=== PATIENT | male | born 1995 | race Caucasian/White ===

== ENCOUNTER 2024-09-14 02:18 | Observation (INO) | payer BC, SELFPAY ==
[2024-09-13 21:54] VITALS: BP 133/83
[2024-09-13 22:09] LABS: Hematocrit 43.3 % (39.0-52.0); Hemoglobin 15.1 g/dL (13.0-18.0); Mean Corp Hgb Conc. 34.9 g/dL (33.0-37.0); Mean Corpuscular Volume 88.7 fL (80.0-94.0); Nucleated Red Blood Cells % 0 % (-); Platelet Count 218 10^3/uL (130-400); Red Cell Dist. Width 12.1 % (11.5-14.5)
[2024-09-13 22:26] LABS: ALT (SGPT) 125 U/L (0-50); AST (SGOT) 58 U/L (17-59); Albumin 4.7 g/dl (3.5-5.0); Alkaline Phosphatase 60 U/L (38-126); Blood Urea Nitrogen 12 mg/dl (9-20); Calcium 9.8 mg/dl (8.4-10.2); Carbon Dioxide 24 mmol/L (22-30); Chloride 104 mmol/L (98-107); Glucose 112 mg/dl (70-99); Potassium 4.5 mmol/L (3.5-5.1); Sodium 135 mmol/L (135-145); Total Protein 7.7 g/dl (6.3-8.2); eGFR > 60.00
[2024-09-13] MEDS: TORADOL 15 MG IV (23:09)
[2024-09-13] MEDS: ZOFRAN 4 MG IV (23:23)
[2024-09-14] VITALS (10 sets, daily range): BP systolic 111–137; BP diastolic 65–77; BMI 25.7
--- NOTE | 2024-09-14 00:38 | ED.GENMED ---
History of Present Illness
General
Chief Complaint: Abdominal Pain
Source: patient
Exam Limitations: none
Time Seen by Provider: 09/13/24 22:20
Nursing documentation reviewed up to this point in time: agreed with
History of Present Illness
History of Present Illness:
Otherwise healthy 29-year-old male presenting to the emergency department today with concerns of right lower quadrant abdominal pain worsening over the past 16 hours or so. Has had associated nausea vomiting no changes in bowel movements. No
history of surgeries. No daily medications.
Review of Systems
Review of Systems
Allergies reviewed?: Yes
All Other Systems: ROS reviewed and negative except as documented in HPI and ROS
Phy Exam
Physical Exam
Physical Exam:
GENERAL: Alert , in no apparent distress
EYE: pupils equal and reactive
NECK: Supple, no significant adenopathy.
ENT: o/p clr, mmm.
CARDIAC: Regular rate and rhythm .
LUNGS: Clear breath sounds bilaterally, no acute respiratory distress, no wheezes/rales/rhonchi
ABDOMEN: Right lower quadrant pain to palpation otherwise soft abdomen
NEUROLOGICAL: Alert and oriented, no focal neuro deficits
SKIN: Warm and dry, skin intact.
MUSCULOSKELETAL: No edema, well perfused.
PSYCH: Normal and appropriate interaction.
Course
Orders/Labs/Results
Orders:
Orders
09/13/24 22:03
CBC/With Diff [Complete Blood Count/With Diff] Urgent
CMP [Comprehensive Metabolic Panel] Urgent
09/13/24 22:53
CT Abd/Pel (IV only)-DH only Urgent
Comment:
Reason For Exam: RLQ pain
Urinalysis Reflex To Culture Urgent
Ketorolac [Toradol] 15 mg IV NOW STA
09/13/24 23:22
Ondansetron Injectable [Zofran] 4 mg IV NOW STA
Abnormal Lab Results
09/13/24
22:03
WBC 14.7 H 10^3/uL
(4.8-10.8)
MPV 11.2 H fL
(7.4-10.4)
Abs Immat Gran (auto) 0.1 H 10^3/uL
(0-0.05)
Absolute Neuts (auto) 12.6 H 10^3/uL
(1.4-6.5)
Absolute Lymphs (auto) 0.9 L 10^3/uL
(1.2-3.4)
Absolute Monos (auto) 0.9 H 10^3/uL
(0.1-0.6)
Neutrophils % 86.2 H %
(42.2-75.2)
Lymphocytes % 6.1 L %
(20.5-51.1)
Glucose 112 H mg/dl
(70-99)
ALT 125 H U/L
(0-50)
09/13/24 22:03
09/13/24 22:03
Vital Signs
Initial and Last Documented VS:
Initial Vital Signs
Temp Pulse Resp BP Pulse Ox
98.2 F 83 15 133/83 96
09/13/24 21:54 09/13/24 21:54 09/13/24 21:54 09/13/24 21:54 09/13/24 21:54
Last Documented Vital Signs
Temp Pulse Resp BP Pulse Ox
98.2 F 83 15 133/83 96
09/13/24 21:54 09/13/24 21:54 09/13/24 21:54 09/13/24 21:54 09/13/24 21:54
MDM/Problems Addressed
MDM/Problems Addressed:
29-year-old male presenting to the emergency department today with concerns of right lower quadrant abdominal pain worsening throughout the day today. Here he does have tenderness to the McBurney's point. Pain controlled with Toradol nausea
controlled with Zofran. CT scan confirming acute appendicitis without signs of complication. Case discussed with the general surgeon they will accept him to his service. He was started on antibiotics and otherwise likely will go to surgery
tomorrow morning.
*Pulse Oximetry
SaO2: 96
Oxygen Mode of Delivery: Room air
Patient hypoxic: no (96)
*Critical Care Note
Total Time (30-74mins, 75-104mins- exclusive of procedures): Not Applicable
ED Attending Note
-
Portions of this chart may have been created with voice recognition software.� Occasional wrong word or��sound alike� substitutions may have occurred due to the inherent limitations of voice recognition software.
Discharge Plan
Departure
Patient Disposition: Admit
Date of Disposition: 09/14/24
Time of Disposition: 00:46
Admit to: Med/Surg
Admit to doctor: Santana
Presentation/result/management discussed w/ accepting MD/DO: Hospitalist
Patient with high blood pressure during this ER visit?: No
Condition: Good
Covid-19: Not Applicable
Discharge Problem:
Acute appendicitis
Referrals:
NONE,* [Family Provider, Internal Medicine]
Interventions
Interventions:
*Risk Screen - Suicide Last Done: 09/13/24 21:54
*General Assessment Last Done: 09/13/24 21:54
*Neglect/Abuse Screening Last Done: 09/13/24 21:54
*ED COVID-19 Vaccine History Last Done: 09/13/24 21:54
Discharge Date and Time
Print Language: POLISH
[2024-09-14] MEDS: TORADOL 15 MG IV (00:58)
[2024-09-14] MEDS: ZOSYN 50 IV ×2 (00:59→05:00)
--- NOTE | 2024-09-14 01:27 | HPS.HSE ---
Addendum entered and electronically signed by Murali Dillon MD 09/14/24 10:07:
I saw and examined the patient independently.
The Chocolate Coater's note was reviewed and I agree with the note, assessment and plan except where noted below.
Comment: This is a 29-year-old male who presents with a 1 day history of periumbilical then right lower quadrant abdominal pain found to have acute appendicitis on CT imaging. Mild leukocytosis.
Will plan for a laparoscopic appendectomy in the OR today.
Admission status changed to PSR
N.p.o., IV fluids, IV antibiotics ordered.
Risks/Benefits/Alternatives, expected postoperative course and possible complications (bleeding, infection, injury to surrounding structures, acute/chronic pain) discussed at length. Patient wishes to proceed with surgery. All questions answered.
Consent obtained.
I spent 60 minutes in total for the care of this patient today including direct patient care and counseling, reviewing labs, imaging, coordination of care, as well as documentation.
Original Note:
Family Physician
-
Family Physician: * NONE
Chief Complaint
-
Abdominal Pain
History of Present Illness
Patient is a 29 year old male, with no significant past medical history, who presents to the emergency department with complaints of right lower quadrant abdominal pain. Pain started around noon on 09/13/2024 and has been worsening causing him to come
to the emergency department. He reports nausea and vomiting, unable to tolerate PO intake. He denies any changes in bowel movements. He denies any sick contacts. No history of abdominal surgeries. No daily medications. Patient does report that he
has been taking NSAIDS for back pain over the last few days.
In the emergency department, WBC elevated at 14.7, AST elevated at 125. Vital signs stable, afebrile.
CT Abdomen/Pelvis with contrast completed in Emergency Department. Vision Radiologist Preliminary Impression: Acute appendicitis with dilatation of the proximal appendix to 15 mmg. No evidence of perforation of abscess at this time.
No calcified gallstones. No bowel obstruction or bowel wall thickening. No obstructive urolithiasis. No free fluid nor free air.
Patient received Toradol and Zofran, in the emergency department.
Emergency provider Terence Harris PA-C, discussed case with General Surgeon, Dr. Dillon, who accepted patient to his service. Plan for possible OR tomorrow, patient NPO. Ordered IV fluids: NSS @ 85 mls/hr, IV antibiotics: Zosyn 3.375 gram Q6H,
antiemetics and pain control.
Medical History
Past Medical History
Past Medical History: Reports None
Past Surgical History: Reports Other ([place] teeth removal, approximately 5 years ago)
Social History
Tobacco: Non-smoker
Alcohol: Occasional
Drug: None
Personal: Single
Living: Alone
Employment: Employed
Family History
Family History: Not pertinent
Allergies / Home Medications
Allergies reflects when Allergies were last updated in [employer] [facility].
Home Medications with original date entered in [employer] [facility]
Allergy/Medication List:
Patient Allergies
Allergy/AdvReac Type Severity Reaction Status Date / Time
No Known Allergies Allergy Unverified 09/13/24 21:56
Review of Systems
-
A 12 point ROS was completed and negative except as noted: Yes
Constitutional: Reports Sleep Disturbance (from abdominal pain) and Other (poor po intake due to nausea/vomiting)
EENT: Reports No Symptoms
Respiratory: Reports No Symptoms
Cardiac: Reports No Symptoms
Abdomen/GI: Reports Abdominal Pain (right lower quadrant, rates at 6 out of 10 at time of assessment)
: Reports No Symptoms
Musculoskeletal: Reports No Symptoms
Skin: Reports No Symptoms
Neurological: Reports No Symptoms
Endocrine: Reports No Symptoms
Psych: Reports No Symptoms and Calm
Physical Exam
Vital Signs
Vital Signs
Temp Pulse Resp BP Pulse Ox
98.2 F 71 18 137/76 98
09/13/24 21:54 09/14/24 01:10 09/14/24 01:10 09/14/24 01:07 09/14/24 01:10
Physical Exam
General: Well Nourished, Conversant, Appears in Distress (mild distress from abdominal pain), Pain (right lower quadrant abdominal pain) and Poor Appetite
HEENT: NormoCephalic, Moist mucous membranes and PERRLA
Respiratory: Clear and Non Labored Respirations
Cardiac: Regular Rhythm
GI: Soft and Tender (TTP, right lower quadrant)
Musculoskeletal: No Edema
Skin: Warm and Dry
Neuro: AO x 3
Psych: Calm
Laboratory Results
-
09/13/24 22:03
09/13/24 22:03
Laboratory Results
Total Bilirubin 0.7 mg/dl (0.2-1.3) 09/13/24 22:03
AST 58 U/L (17-59) 09/13/24 22:03
ALT 125 U/L (0-50) H 09/13/24 22:03
Alkaline Phosphatase 60 U/L (38-126) 09/13/24 22:03
Data Reviewed
-
CT Scan: Report Reviewed by me
Lab Data: Labs Reviewed by me
Impression/Plan
-
IMPRESSION:
Patient is a 29 year old male, with no significant past medical history, who presents to the emergency department with complaints of right lower quadrant abdominal pain.
PLAN:
Acute appendicitis
-Admit to General Surgery, Med Surg under the service of Dr. Dillon
-CT Abdomen/Pelvis with contrast completed in Emergency Department. Vision Radiologist Preliminary Impression: Acute appendicitis with dilatation of the proximal appendix to 15 mmg. No evidence of perforation of abscess at this time.
-NPO until seen by surgery, IV fluids NSS @ 85 mls/hr
-IV antibiotics: Continued Zosyn 3.375 mg Q6H.
-Pain medication: Dilaudid
-Antiemetics: Zofran
DVT prophylaxis: SCD's
Code status: Full code
[2024-09-14] MEDS: NSS 1000 IV ×2 (02:29→09:51)
[2024-09-14] MEDS: DILAUDID 0.5 MG IV ×3 (02:30→15:07)
--- NOTE | 2024-09-14 03:31 | PTCARENOTE ---
Received patient from ED at approx 0205. Patient ambulated w/o assistance from stretcher to bed. AAA x 2. Call michael in reach.
[2024-09-14] MEDS: DILAUDID 1 MG IV ×4 (04:36→14:26)
[2024-09-14] MEDS: ZOFRAN 4 MG IV (04:48)
[2024-09-14 05:22] LABS: Urine Character Clear (Clear)
[2024-09-14 05:30] LABS: Urine Red Blood Cell None Seen /HPF (0-2); Urine White Cell 0-2 /HPF (0-5)
--- NOTE | 2024-09-14 07:53 | W.SUR.PREOP ---
Pre-Operative Surgical Note
-
I have examined this patient prior to the performance of the scheduled procedure.
The patient's condition is unchanged from the time of the current History and
Physical and the patient is able to undergo the scheduled procedure.
--- NOTE | 2024-09-14 11:52 | W.IMMPOSTOP ---
Surgical Immed Post Op Note
-
Primary Surgeon: Murali Dillon MD
Assisting Surgeon: None
Pre-op Diagnosis: Acute appendicitis
Post-op Diagnosis: Same
Procedure Performed: Laparoscopic appendectomy
Anesthesia Type: General
Specimen / Cultures: Appendix
Estimated Blood Loss: 1 cc
Complications: None
Operative Findings: Veress entry, initially three 5 mm port set up. Acutely inflamed appendicitis, with fairly dense adhesions to the surrounding tissues which were carefully lysed with a laparoscopic bipolar energy device. The base base was also
involved so the umbilical port was upsized to a 12 and the base divided with a 45 purple load on an Endo KELLEY. There is no evidence of perforation, and there was no spillage. The umbilical port was closed with 0 PDS using a Shon Escobar prior to
evacuation of pneumoperitoneum.
POST OP PLAN:
Imaging: None
Labs: Routine AM
Diet: Advance to Regular as tolerated
Analgesia: Tylenol 650mg q6 Jass, Dilaudid 0.5mg q2h PRN
Neuro/vascular checks: Per unit
AC/AP: Hold Therapeutic AC, Ok for DVT PPx
Activity: Ad Deann
Wound/Incisions/Drains: Routine
Abx: Will do 4 days of antibiotics
Dispo: RNF, anticipate discharge home today.
--- NOTE | 2024-09-14 11:54 | OR.RPT ---
Operative Report
Operative Report
Patient Name: Chandler Samuel
: 1995
Date of Operation: 09/14/2024
Preoperative Diagnosis: Acute Appendicitis
Postoperative Diagnosis: Same
Procedure(s):
Laparoscopic Appendectomy
Surgeon(s):
Dr. Dillon
Semiconductor Packages Sealer(s):
SANDRO Puckett
Anesthesia: General
Estimated Blood Loss: 1 cc
Urine Output: None
Drains/Lines/Implants: None
Specimens:
1. Appendix
HPI/Surgical Indications:
This is a 29-year-old male who presents with a 1 day history of abdominal pain. Exam, labs and imaging are consistent with acute appendicitis. Risks/Benefits/Alternatives were discussed at length, and the patient agreed to proceed with surgery.
Operative Findings: Veress entry, initially three 5 mm port set up. Acutely inflamed appendicitis, with fairly dense adhesions to the surrounding tissues which were carefully lysed with a laparoscopic bipolar energy device. The base base was also
involved so the umbilical port was upsized to a 12 and the base divided with a 45 purple load on an Endo KELLEY. There is no evidence of perforation, and there was no spillage. The umbilical port was closed with 0 PDS using a Shon Escobar prior to
evacuation of pneumoperitoneum.
Procedure Description:
The patient was placed in the supine position, with the left arm tucked, and general anesthesia was induced. The abdomen was prepared and draped in a sterile fashion so as to expose the entire abdomen. A surgical time out was taken. Abdominal access
was obtained with a left subcostal Veress entry which required a single pass followed by a left lower quadrant 5 mm Optiview entry. After confirming no injury on entrance, two additional 5mm ports were placed in the suprapubic area just off midline
and infraumbilical. The patient was placed in Trendelenberg with the right slightly up . The appendix was identified and noted to be suppurative and inflamed with significant adhesions to the surrounding tissues but not perforated. Using a
laparoscopic bipolar energy device, the meso appendix was divided. The base of the appendix appeared involved and was ligated/divided using a 45 purple Endo KELLEY after upsizing the umbilical port to a 12. The appendix was placed in a specimen
retrieval bag. Hemostasis was confirmed and the ports were removed under visualization. The specimen was passed off the field. The umbilical port was closed with a [id number] 0-PDS and the skin for all three ports was closed with interrupted
monocryls and covered with dermabond. The patient was awoken from anesthesia in good condition and transported to the recovery area.
I was the attending physician and performed the procedure with assistance from the PA student above. I was present for all portions of the case.
Murali Dillon MD
[2024-09-14] MEDS: ZOSYN IV (12:26)
--- NOTE | 2024-09-14 14:17 | CM ---
Addendum entered by Loc Guo 09/14/24 14:36:
LOC changed to PSR
Original Note:
Patient will d/c home today. Patient seen bedside w/ significant other. Initial assessment completed. Patient is a 29 year old male, with no significant past medical history, who presents to the emergency department with complaints of right lower
quadrant abdominal pain.
Laparoscopic appendectomy performed today
Patient resides alone in a 2 story townhouse, 1 step to enter from the outside. Patient is independent in all areas. No equipment. No therapy hx.
Address, point of contact and insurance verified
PCP: Patient does not have a PCP at this time
Pharmacy: [facility]
Patient admitted obs. OOBS form verbally reviewed, copy provided, copy on chart
Patient receptive to residency clinic information until he is established w/ a PCP
Plan: Home, no needs
--- NOTE | 2024-09-14 15:29 | PTCARENOTE ---
pt walked down to HI and left with his .
== END 2024-09-14 16:03 | disposition home or self-care (01) ==
LOC: 4 WEST ACU 02:18
PROVIDERS: Emergency Medicine; Physician Assistant; ADMITTING PHYSICIAN Surgery; EMERGENCY PHYSICIAN Student in an Organized Health Care Education/Training Program
DX: K35.80 Unspecified acute appendicitis (principal)
CPT/HCPCS: 44970; 74177; 80053; 81003; 81015; 85025; 87086; 88304; 93005; 96365; 96375; 96376; 99284; G0378; Q9967